=== PATIENT | female | born 1980 | race Caucasian/White ===

== ENCOUNTER 2018-07-20 18:37 | Emergency (ER) | payer OTHER, MEDICAID, SELFPAY ==
[2018-07-20 18:58] VITALS: BP 134/84; PULSE 105; RESP 18; TEMP 39.1; O2SAT 100
[2018-07-20] MEDS: ACETAMINOPHEN 325 MG TABLET 650 MG PO (19:09)
[2018-07-20 20:00] VITALS: BP 131/77; PULSE 88; RESP 16; TEMP 38.2; O2SAT 91
--- NOTE | 2018-07-20 20:06 | ED_ITS ---
HPI - Fever General Chief Complaint: Fever Stated Complaint: thinks she has the flu Time Seen by Provider: 07/20/18 20:05 Source: patient Mode of arrival: ambulatory Limitations: no limitations History of Present Illness HPI Narrative: Patient is an otherwise healthy 38-year-old female here for evaluation of approximately 24 hr of headache, body aches, fevers, cough. She did not have the flu shot this year. She has been exposed to individuals who have had the flu. Has not tried anything for symptoms prior to arrival Related Data Previous Rx's Medication Instructions Recorded oseltamivir [Tamiflu] 75 mg PO Q12H 5 Days #10 cap 07/20/18 Allergies Allergy/AdvReac Type Severity Reaction Status Date / Time No Known Drug Allergies Allergy Verified 07/20/18 18:58 Review of Systems Constitutional Reports body ache(s), Reports chills, Reports fatigue, Reports fever(s) and Reports headache(s) ENT Ears, Nose, Mouth, and Throat: Reports headache(s) Cardiovascular Denies chest pain and Denies dyspnea Respiratory Reports cough and Denies dyspnea Gastrointestinal Gastrointestinal: Denies abdominal pain, Denies change in bowel habits, Denies diarrhea, Denies nausea and Denies vomiting Genitourinary Denies dysuria Musculoskeletal Reports myalgias Integumentary/Breasts Denies rash Neurologic Denies behavioral changes, Denies confusion and Reports headache(s) Psychiatric Denies behavioral changes and Denies confusion Endocrine Reports fatigue Hematologic/Lymphatic Denies easy bleeding and Denies easy bruising Allergic/Immunologic Denies urticaria PFSH Medical History Healthy adult (Acute) Social History Smoking Status: Never smoker Social History Smoking Status: Never smoker Exam Initial Vital Signs Initial Vital Signs: Vital Signs Temperature 102.3 F H 07/20/18 18:58 Pulse Rate 105 H 07/20/18 18:58 Respiratory Rate 18 07/20/18 18:58 Blood Pressure 134/84 07/20/18 18:58 Pulse Oximetry 100 07/20/18 18:58 Const General: cooperative, well developed, well groomed, No acute distress and ill appearing Orientation: alert, awake and oriented x3 HENMT Head: normal to inspection and normocephalic Resp Effort & Inspection: normal respiratory effort Cardio Rate: regular rate GI Inspection: non-distended Palpation: soft Skin Lesions: no lesions Rashes: no rashes Neuro General: alert, awake and oriented x3 Cognition: normal cognition Speech: speech normal Gait: normal gait Extrem General: normal to inspection Psych Appearance: grossly normal and well kempt Course Orders Ordered: ED Orders 07/20/18 19:07 Influenza A and B by PCR Rapid Stat Discontinued Medications Acetaminophen (Tylenol) 650 mg PO NOW ONE Stop: 07/20/18 19:04 Last Admin: 07/20/18 19:09 Dose: 650 mg Acetaminophen (Tylenol) 325 mg PO Q6HR PRN PRN Reason: As Needed for Fever/Mild Pain Ibuprofen (Advil) 800 mg PO NOW ONE Stop: 07/20/18 20:23 Last Admin: 07/20/18 20:26 Dose: 800 mg Vital Signs - 8 hr 07/20/18 20:00 Temperature 100.8 F H Pulse Rate 88 Respiratory Rate 16 Blood Pressure [Right Arm] 131/77 Pulse Oximetry 91 MDM - Fever Lab Data Attestation: I reviewed the patient's lab results. Lab Results 07/20/18 Range/Units 19:07 Influenza A & B (PCR) Positive, type a A (Negative) MDM Narrative Medical decision making narrative: Patient is flu positive in this does explain all of her symptoms. She has a normal neurologic exam. We did discuss Tamiflu in the indications for Tamiflu. Inform her that she since she has had the symptoms for less than 48 hr Tamiflu could potentially be effective in decre asing her symptoms for only 12 hr. We did discuss the flu in the expected course to include headaches and body aches for the next week or so. After this discussion she did opt to take the Tamiflu. She is given prescription for this. Was given ibuprofen for her headache. Low suspicion for meningitis or subarachnoid hemorrhage. Of the patient follow up with her primary doctor. She expressed understanding and agreement with plan. Discharge Plan Departure Patient Disposition: Home Clinical Impression: Influenza Discharge Date/Time: 07/20/18 20:33 Interventions: ED Discharge Assessment Last Done: 07/20/18 20:33 Instructions: Influenza Activity Restrictions/Additional Instructions: Be sure to increase your fluid intake. Take Tylenol/acetaminophen every 4 hr as directed and ibuprofen/Motrin every 6-8 hours as needed. Contact your primary care doctor for follow-up. Return to the emergency department for any new or worsening symptoms Prescriptions: New oseltamivir [Tamiflu] 75 mg capsule 75 mg PO Q12H 5 Days Qty: 10 RF: 0
[2018-07-20] MEDS: IBUPROFEN 400 MG TABLET 800 MG PO (20:26)
== END 2018-07-20 20:33 | disposition home or self-care (01) ==
PROVIDERS: Emergency Provider Emergency Medicine
DX: J10.1 Influenza due to other identified influenza virus with other respiratory manifestations (principal)
CPT/HCPCS: 87400; 99282; 99283

== ENCOUNTER 2025-03-11 15:27 | Emergency (ER) | payer MEDICAID, SELFPAY ==
--- NOTE | 2025-03-11 15:45 | DI.RAD.S_ITS ---
PROCEDURE: XR TIBIA FIBULA LT 2V INDICATIONS: swelling, pain TECHNIQUE: 2 views of the tibia and fibula were acquired. COMPARISON: None. FINDINGS: Bones: No fractures or dislocations. No suspicious bony lesions. Soft tissues: No suspicious soft tissue calcifications or masses. IMPRESSION: No acute lower leg fracture or dislocation. Dictated by: Ahsan Ribera M.D. on 03/11/2025 at 16:22 Approved by: Ahsan Ribera M.D. on 03/11/2025 at 16:23
--- NOTE | 2025-03-11 15:45 | DI.RAD.S_ITS ---
PROCEDURE: XR FOOT LT MIN 3V INDICATIONS: swelling, pain TECHNIQUE: 3 views of the foot were acquired. COMPARISON: None. FINDINGS: Bones: No fractures or dislocations. No bony erosive changes. No suspicious bony lesions. Soft tissues: No tibiotalar joint effusion. Achilles tendon appears normal. IMPRESSION: No acute left foot fracture or dislocation. No radiographic evidence of osteomyelitis. No obvious soft tissue abnormalities. Dictated by: Ahsan Ribera M.D. on 03/11/2025 at 16:23 Approved by: Ahsan Ribera M.D. on 03/11/2025 at 16:23
--- NOTE | 2025-03-11 15:45 | DI.RAD.S_ITS ---
PROCEDURE: XR ANKLE LT MIN 3V INDICATIONS: foot swelling, pain TECHNIQUE: 3 views of the ankle were acquired. COMPARISON: None. FINDINGS: Bones: No fractures or dislocations. No bony erosive changes. Ankle mortise is normally aligned. No suspicious bony lesions. Soft tissues: Mild lateral ankle soft tissue swelling is seen. Achilles tendon appears normal. IMPRESSION: No acute ankle fracture or dislocation. No radiographic evidence of osteomyelitis. Mild lateral ankle soft tissue swelling. Dictated by: Ahsan Ribera M.D. on 03/11/2025 at 16:23 Approved by: Ahsan Ribera M.D. on 03/11/2025 at 16:25
--- NOTE | 2025-03-11 15:46 | DI.US.S_ITS ---
PROCEDURE: US PERIPH VENOUS LOW EXTREM LT INDICATIONS: leg swelling, pain TECHNIQUE: Real-time imaging, as well as color and pulse Doppler interrogation, were performed of the lower extremity deep veins from the inguinal ligament to the popliteal fossa, with documentation of the visualized calf veins. COMPARISON: None. FINDINGS: The common femoral, femoral, popliteal, and the visualized calf veins are normally compressible, and free of intraluminal thrombus. Color and pulse Doppler demonstrate normal phasic intraluminal flow. There is normal augmentation response to distal compression maneuver. IMPRESSION: No findings of DVT in visualized left lower extremity veins. Dictated by: Ahsan Ribera M.D. on 03/11/2025 at 16:39 Approved by: Ahsan Ribera M.D. on 03/11/2025 at 16:40
[2025-03-11 15:48] VITALS: BP 176/79; PULSE 77; RESP 12; TEMP 36.6; O2SAT 98; BMI 28.1
[2025-03-11 17:16] VITALS: BP 134/89; PULSE 82; RESP 18; O2SAT 100
--- NOTE | 2025-03-17 19:15 | ED.EXTPRO ---
HPI - Extremity Problem <Di Dutta PA-C - Last Filed: 03/18/25 20:11> General Chief complaint: Extremity Problem,Nontraumatic Stated complaint: Lt leg injury/swelling Time Seen by Provider: 03/11/25 15:45 Source: patient Mode of arrival: Ambulatory History of Present Illness HPI Narrative: 45-year-old female with past medical history ankylosing spondylitis, psoriatic arthritis presents to the ED with spontaneous onset of left ankle pain. No trauma. Patient states that she has weight and walking. Patient is currently waiting to start Skyrizi right after an upcoming orthopedic surgery. Related Data Allergies Allergy/AdvReac Type Severity Reaction Status Date / Time No Known Drug Allergies Allergy Verified 07/20/18 18:58 Review of Systems <Di Dutta PA-C - Last Filed: 03/18/25 20:11> Constitutional Constitutional: Denies chills, Denies fatigue, Denies fever(s), Denies frequent falls, Denies lethargy and Denies weakness Eyes Eyes: Denies change in vision, Denies eye discharge, Denies irritation and Denies loss of vision ENT Ears, Nose, Mouth, and Throat: Denies change in voice, Denies dizziness, Denies neck pain, Denies sore throat and Denies throat swelling Cardiovascular Cardiovascular: Denies chest pain, Denies irregular heart rhythm, Denies lightheadedness, Denies palpitations, Denies dyspnea, Denies dyspnea on exertion and Denies orthopnea Respiratory Respiratory: Denies cough, Denies dyspnea, Denies dyspnea on exertion and Denies wheezing Gastrointestinal Gastrointestinal: Denies abdominal pain, Denies change in bowel habits, Denies diarrhea, Denies nausea and Denies vomiting Musculoskeletal Musculoskeletal: Denies neck pain and Denies numbness Comments: Left ankle swelling, pain Integumentary/Breasts Skin/Breast: Denies pruritus, Denies erythema, Denies rash and Denies wounds Neurologic Neurologic: Denies behavioral changes, Denies confusion, Denies dizziness, Denies frequent falls, Denies loss of vision, Denies numbness and Denies weakness Psychiatric Psychiatric: Denies anxiety, Denies behavioral changes, Denies confusion, Denies depression, Denies homicidal ideation and Denies suicidal ideation Endocrine Endocrine: Denies fatigue, Denies flushing and Denies palpitations Hematologic/Lymphatic Hematologic/Lymphatic: Denies easy bruising Allergic/Immunologic Allergic/Immunologic: Denies urticaria, Denies throat swelling and Denies wheezing Patient History <Di Dutta PA-C - Last Filed: 03/18/25 20:11> Medical History Healthy adult Social History Smoking Status: Current every day smoker Smoking Status: Current every day smoker alcohol intake frequency: 0-2 drinks per day Exam <Di Dutta PA-C - Last Filed: 03/18/25 20:11> Narrative Exam Narrative: Const General:?cooperative, healthy appearing and comfortable HENMT Head:?normal to inspection Ears:?hearing grossly normal bilaterally Nose:?external nose normal Face and sinus:?normal facial exam and sinuses nontender Mouth:?oral mucosae normal Throat:?posterior oropharynx normal Eyes General:?appearance normal, both eyes and all related structures Neck Neck:?normal visual inspection and no lymphadenopathy noted Resp Effort & Inspection:?normal respiratory effort Auscultation:?clear to auscultation bilaterally Cardio Rate:?regular rate Rhythm:?regular rhythm Musculoskeletal There is mild swelling of the left ankle. No tenderness to palpation. No warmth. No erythema. Neurovascularly intact. Neuro General:?patient alert, patient awake and patient oriented x3 Initial Vital Signs Initial Vital Signs: Vital Signs Temperature 97.8 F 03/11/25 15:48 Pulse Rate 77 03/11/25 15:48 Respiratory Rate 12 03/11/25 15:48 Blood Pressure 176/79 H 03/11/25 15:48 Pulse Oximetry 98 03/11/25 15:48 Oxygen Delivery Method Room Air 03/11/25 15:48 <Estuardo Ernandez MD - Last Filed: 03/20/25 08:55> Initial Vital Signs Initial Vital Signs: Vital Signs Temperature 97.8 F 03/11/25 15:48 Pulse Rate 77 03/11/25 15:48 Respiratory Rate 12 03/11/25 15:48 Blood Pressure 176/79 H 03/11/25 15:48 Pulse Oximetry 98 03/11/25 15:48 Oxygen Delivery Method Room Air 03/11/25 15:48 MDM - Extremity (Nontraumatic) <Di Dutta PA-C - Last Filed: 03/18/25 20:11> [facility] Narrative Medical decision making narrative: 45-year-old female with past medical history ankylosing spondylitis, psoriatic arthritis presents to the ED with spontaneous onset of left ankle pain. X-ray x-rays negative. Ultrasound was obtained which was negative for DVTs. Recommend patient follow-up with her lead java programmer for further evaluation, since her symptoms appear to be an acute exacerbation of the psoriatic arthritis. No concern for septic arthritis based on exam. Recommend follow-up with PCP as well. ED return precautions discussed with patient. Patient verbalized understanding. Medical records reviewed: Yes Discharge Plan Departure Patient Disposition: Home Clinical Impression: Acute leg pain Qualifiers: Laterality: left Qualified Code(s): M79.605 - Pain in left leg Instructions: DI for Leg Pain Activity Restrictions/Additional Instructions: You were evaluated in the emergency department today for left ankle pain. Your x-rays were normal. Your symptoms are likely due to an exacerbation of the psoriatic arthritis. Please follow-up with your lead java programmer for further evaluation and treatment. In the meanwhile, you may take ibuprofen, Tylenol, hydrocodone that you already have for pain relief. Return to the ED if you have worsening symptoms, numbness, tingling, weakness. Stand Alone Forms: Patient Portal/API ED Sign-out <Estuardo Ernandez MD - Last Filed: 03/20/25 08:55> Cosign ED Attending Cosmarianaature Attestation: I was immediately available in the department for consultation. This documentation has been reviewed and I agree with assessment and plan. Supervised by Estuardo Ernandez MD
== END 2025-03-11 17:21 | disposition home or self-care (01) ==
PROVIDERS: Emergency Provider Student in an Organized Health Care Education/Training Program
DX: M79.605 Pain in left leg (principal)
CPT/HCPCS: 73590; 73610; 73630; 93971; 99281; 99284